=== PATIENT | male | born 1995 | race Caucasian/White ===

== ENCOUNTER 2020-05-07 02:06 | Emergency (ER) | payer SELFPAY ==
[2020-05-07 02:06] VITALS: BP 190/130; PULSE 92; RESP 20; TEMP 36.7; O2SAT 97; BMI 30.8
[2020-05-07 02:57] VITALS: BP 159/100; PULSE 87; RESP 16; O2SAT 98
--- NOTE | 2020-05-07 02:58 | PC.NURSE ---
Patient holding pressure on his penis with washcloth at this time.
--- NOTE | 2020-05-07 03:32 | PC.NURSE ---
Went in to assess patient and bleeding had stopped, pt has very,very small tear in the frenulum. Pt advised he was ready to go home especially since bleeding had stopped. Advised pt on how to care for the area and that he needed to follow-up with urology. Advised patient if he had anymore bleeding that he could not control with pressure to return to ED.
[2020-05-07 03:38] VITALS: BP 152/90; PULSE 84; RESP 16; TEMP 36.6; O2SAT 98
== END 2020-05-07 03:39 | disposition left against medical advice (07) ==
LOC: ER 03:35
PROVIDERS: Emergency Provider Emergency Medicine
DX: Z53.21 Procedure and treatment not carried out due to patient leaving prior to being seen by health care provider (principal); R03.0 Elevated blood-pressure reading, without diagnosis of hypertension
CPT/HCPCS: 99211